=== PATIENT | male | born 1950 | race African-American/Black ===

== ENCOUNTER 2025-04-20 11:30 | Emergency (ER) | payer OTHER ==
[~2025-04-20 11:30] MED LIST: Iopamidol 370 76% 100 ML VIAL ONE
[2025-04-20 12:23] LABS: Hematocrit 39.8 % (42.0-52.0); Hemoglobin 14.0 g/dL (14.0-18.0); Mean Corpuscular Hemoglobin 28.8 pg (27.0-31.0); Mean Corpuscular Volume 82.0 fl (78.0-98.0); Platelet Count 309 10x3/uL (130-400); Red Blood Cell (RBC) Count 4.85 mill/uL (4.70-6.10); White Blood Cell (WBC) Count 5.5 10x3/uL (4.8-10.8)
[2025-04-20 12:27] LABS: ALT (SGPT) 17 U/L (Less than 45); AST (SGOT) 29 U/L (11-34); Albumin 4.1 g/dL (3.1-4.5); Alkaline Phosphatase 80 U/L (40-110); Anion Gap 13 mmol/L (10-20); BUN (Urea Nitrogen) 7 mg/dL (8.4-25.7); Bilirubin, Total 0.7 mg/dL (0.3-1.2); Calc. Creatinine Clearance 0 mL/min (70-130); Calcium 9.0 mg/dL (7.8-10.44); Carbon Dioxide 26 mmol/L (23-31); Chloride 108 mmol/L (98-107); Globulin 3.0 g/dL (2.4-3.5); Glucose 95 mg/dL (83-110); Lipase 20 U/L (8-78); Potassium 3.5 mmol/L (3.5-5.1); Sodium 143 mmol/L (136-145)
[2025-04-20 12:33] LABS: MDiff Complete? YES
== END 2025-04-20 13:45 ==
LOC: NAV ERS 11:30 → EEVIPCON 11:30 → NAV ERS 13:45
DX: K43.9 Ventral hernia without obstruction or gangrene (principal); I10 Essential (primary) hypertension
CPT/HCPCS: 74177; 80053; 83690; 85025; Q9967